=== PATIENT | male | born 1975 | race Hispanic/Latino ===

== ENCOUNTER 2025-07-19 04:27 | Emergency (ER) | payer OTHER ==
[~2025-07-19] VITALS: Ht 175.3 cm; Wt 90.7 kg
--- NOTE | 2025-07-19 04:33 | NUR ---
UA CUP PROVIDED
--- NOTE | 2025-07-19 04:42 | EKG ---
[facility] Test Date: 2025-07-19 Test Time: 04:34:07 Pat Name: PARESH MANCIA Department: [facility] Patient ID: [facility] [id number] Room: Gender: Medical Practice Manager: [id number] : 1975 Requested By: MAXIMO FAULKNER Order Number: [id number] Reading MD: Jimmy Nath Measurements Intervals [place] Rate: 117 P: 43 TN: 149 QRS: 7 QRSD: 82 T: 12 QT: 327 QTc: 455 Interpretive Statements Sinus tachycardia Borderline ST depression, lateral leads No previous ECG available for comparison Electronically Signed On 07-19-2025 12:14:46 [employer] SOFTWARE DEVELOPER by Jimmy Nath Please click the below link to view image of tracing.
[2025-07-19 04:47] LABS: APPEARANCE,URINE CLEAR (CLEAR); GLUCOSE, URINE (UA) NEGATIVE (NEGATIVE); LEUKOCYTE ESTERASE ,URINE NEGATIVE Leu/uL (NEGATIVE); NITRATE,URINE NEGATIVE (NEGATIVE); OCCULT BLOOD,URINE +- (TRACE) (NEGATIVE)
[2025-07-19 04:57] LABS: ADD UA MICROSCOPIC YES
[2025-07-19 05:03] LABS: IMMATURE GRANULOCYTE ABSOLUTE 0.01 K/uL (0-1); NUCLEATED RED BLOOD CELLS 0.0 % (0.0-0.19); PLATELET COUNT (AUTO) 142 K/uL (130-400); RED BLOOD CELL COUNT(AUTO) 5.06 MIL/uL (4.50-6.20); RED CELL DISTRIBUTION WIDTH 11.8 % (11.0-15.5); WHITE BLOOD COUNT (AUTO) 6.0 K/uL (4.8-10.8)
[2025-07-19] MEDS: NITROGLYCERIN 1GM OINT 1 INCH/1GM TD ONE (05:05)
[2025-07-19] MEDS: OCTYL 2-CYANOACRYLATE 1 EACH TP SCH (05:11)
[2025-07-19 05:12] LABS: CREATININE 0.7 mg/dL (0.5-1.3); GLOMERULAR FILTR. RATE CALC 114.0 mL/min (>90); GLUCOSE,RANDOM 149.0 mg/dL (70-105); SODIUM SERUM 133.0 mmol/L (136-145); UREA NITROGEN, BLOOD 7.0 mg/dL (7-18)
[2025-07-19 05:17] LABS: CREATINE KINASE, TOTAL 393.0 U/L (21-232)
--- NOTE | 2025-07-19 05:47 | ERN ---
ED Note History of Present Illness Stated Complaint: HTN, ABRASION/LACERATION TO NARE Chief Complaint: Multiple Complaints Time Seen by MD: 04:34 Dictation: This is a 50-year-old male who presented to the emergency rooms with complaints of abrasion and bleeding from the right nares. It was outside on the nose and patient stated that he picked the skin. The bleeding has gone on for more than 2 hours and hence he came in for evaluation. He was noted to be very hypertensive in triage. He denied any headache chest pain blurred vision diplopia slurred speech motor weakness or seizure activity. He has not taken his blood pressure medications today due to insurance issues. Temperature 97.3 pulse 120 respirations 20 blood pressure 234/144 with a pulse oximetry of 98% on room air Allergies: Coded Allergies: No Known Allergies (Unverified Allergy, Unknown, 07/19/25) Past Medical History Past Medical History: Hypertension Surgical History: None Family History: Negative Social History: Negative RN Note Reviewed/Agreed w/PFSH: Yes Review of System Dictation Constitutional: Negative for fever,chills, and weight loss Eyes: Negative for injury, pain,redness, and discharge ENT: Negative for injury,pain or swelling bleeding from skin of the nose Cardiovascular: Negative for chest pain, palpitations, and edema Respiratory: Negative for shortness of breath, cough, and wheezing, Abdomen/GI: Negative for abdominal pain, nausea, vomiting, diarrhea, and constipation Back: Negative for injury and pain : Negative for injury, bleeding and discharge MS/Extremity: Negative for injury and deformity Skin: Negative for rash, and discoloration Neuro: Negative for headache, weakness, numbness, tingling, and seizure Psych: Negative for suicide ideation, homicidal ideation, and hallucinations Initial Vital Sign VS Vital Signs Date Time Temp Pulse Resp B/P (MAP) Pulse Ox O2 Delivery O2 Flow Rate FiO2 07/19/25 04:29 97.3 120 20 234/144 98 Room Air 07/19/25 04:49 0 21 Physical Exam Dictation General: awake, alert, NAD Head/Face: Normocephalic, atraumatic Eyes: PERRL, EOMI, vision at baseline ENT: oral cavity clear, TMs clear, no signs of infection Neck: Trachea midline, supple, no nuchal rigidity Cardiovascular: RRR, normal S1/S2, No MRGs, no JVD Respiratory: CTAB, no respiratory distress, No rales or wheezes Abdomen: Soft, non-tender, non-distended, normal bowel sounds, no guarding or rebound. Skin: Warm, dry, normal turgor, no rash MS/Extremity: Pulses equal, no cyanosis, neurovascular intact, FROM Neuro: COAx4, GCS 15, strength 5/5, CN 2-12 intact, normal cerebellar exam, normal gait, Psych: Normal behavior, mood, and affect normal Extremities-trace edema without any palpable cords, Homans sign is negative Results (Laboratory/Radiology) Laboratory/Radiology Laboratory Tests Test 07/19/25 04:40 07/19/25 04:52 Urine Color COLORLESS (YELLOW) Urine Appearance CLEAR (CLEAR) Urine pH 6.5 (5.0-8.0) Urine Specific [place] 1.005 (1.001-1.031) Urine Protein 50 mg/dL (NEGATIVE) H Urine Glucose (UA) NEGATIVE mg/dL (NEGATIVE) Urine Ketones NEGATIVE mg/dL (NEGATIVE) Urine Occult Blood +- (TRACE) (NEGATIVE) H Urine Nitrate NEGATIVE (NEGATIVE) Urine Bilirubin NEGATIVE mg/dL (NEGATIVE) Urine Urobilinogen 0.2 mg/dL (0.2-1.0) Urine Leukocyte Esterase NEGATIVE [place]/uL Urine RBC 0-1 /HPF (0-1) Urine WBC /HPF (0-1) Urine Bacteria Rare /HPF (None Seen) White Blood Count 6.0 K/uL (4.8-10.8) Red Blood Count 5.06 MIL/uL (4.50-6.20) Hemoglobin 16.4 g/dL (14.0-18.0) Hematocrit 45.7 % (42-54) Mean Corpuscular Volume 90.3 fL (79-99) Mean Corpuscular Hemoglobin 32.4 pg (27.0-33.0) Mean Corpuscular Hemoglobin Concent 35.9 g/dL (32.0-36.0) Red Cell Distribution Width 11.8 % (11.0-15.5) Platelet Count 142 K/uL (130-400) Mean Platelet Volume 9.5 fL (7.5-10.5) Immature Granulocyte % (Auto) 0.2 % (0-1) Neutrophils (%) (Auto) 60.6 % (40.0-77.0) Lymphocytes (%) (Auto) 29.6 % (21.0-51.0) Monocytes (%) (Auto) 7.5 % (3.0-13.0) Eosinophils (%) (Auto) 1.3 % (0.0-8.0) Basophils (%) (Auto) 0.8 % (0.0-5.0) Neutrophils # (Auto) 3.6 K/uL (1.8-7.7) Lymphocytes # (Auto) 1.8 K/uL (1.0-4.8) Monocytes # (Auto) 0.5 K/uL (0.1-1.0) Eosinophils # (Auto) 0.08 K/uL (0.00-0.70) Basophils # (Auto) 0.05 K/uL (0.00-0.20) Absolute Immature Granulocyte (auto 0.01 K/uL (0-1) Nucleated Red Blood Cells 0.0 % (0.0-0.19) Sodium Level 133 mmol/L (136-145) L Potassium Level 3.2 mmol/L (3.5-5.1) L Chloride Level 94 mmol/L (101-111) L Carbon Dioxide Level 26 mmol/L (21-32) Blood Urea Nitrogen 7 mg/dL (7-18) Creatinine 0.7 mg/dL (0.5-1.3) Glomerular Filtration Rate Calc 114 mL/min (>90) Random Glucose 149 mg/dL (70-105) H Total Calcium 9.0 mg/dL (8.5-10.1) Total Creatine Kinase 393 U/L (21-232) H Troponin I High Sensitivity 7 ng/L (4-75) Labs Reviewed?: Yes EKG Comment: 12 lead EKG done on 07/19/2025 at 4:34 a.m. showed a heart rate of 117, VA interval 149, QRS 82, QT/QTC 327/455 Impression sinus tachycardia nonspecific ST-T changes noted EKG rhythm strip shows sinus tachycardia with a some ST-T depressions that are very nonspecific. Interpreted by ER MD Dr. Faulkner ED Course ED Course Orders Procedure Category Date Status Time Vital Signs Per CPOE 07/19/25 Transmitted Routine 04:38 Chest 1vw RAD 07/19/25 Resulted 04:38 12 Lead Ekg Tracing- EKG 07/19/25 Complete Technical 04:38 Oxygen By Nc/Pulse Ox CPOE 07/19/25 Transmitted 04:38 Maintain Iv CPOE 07/19/25 Transmitted 04:38 Iv Insertion CPOE 07/19/25 Transmitted 04:38 Cardiac Monitoring CPOE 07/19/25 Transmitted 04:38 Pulse Oximetry With CPOE 07/19/25 Transmitted Vs And Prn 04:38 Cbc With Differential LAB 07/19/25 Complete 04:38 Activity: Br W/Brp CPOE 07/19/25 Transmitted With Assist 04:38 Creatine Kinase, Total LAB 07/19/25 Complete 04:38 Troponin I High LAB 07/19/25 Complete Sensitivity 04:38 Urinalysis Profile LAB 07/19/25 Complete 04:38 Basic Metabolic Panel LAB 07/19/25 Complete 04:38 Dermabond (Dermabond) PHA 07/19/25 In Process 05:00 Nitroglycerin 1gm PHA 07/19/25 Complete Oint (Nitroglycerin 1g 05:00 Alprazolam 0.5mg PHA 07/19/25 Complete (Xanax 0.5mg) 05:00 Potassium Bicarb/Cit PHA 07/19/25 Complete Ac 25meq (K-Lyte Ta 06:00 Hydralazine 20mg Inj PHA 07/19/25 Complete (Apresoline 20mg In 06:30 Current Medications Medications (Trade) Dose Ordered Sig/Abby Route PRN Reason Start Time Stop Time Status Last Admin Dose Admin Alprazolam (XANax 0.5MG) 0.5 mg ONCE ONCE PO 07/19/25 05:00 07/19/25 05:01 DC 07/19/25 05:05 Hydralazine HCl (APRESOLine 20MG INJ) 20 mg ONCE ONCE IV 07/19/25 06:30 07/19/25 06:31 DC 07/19/25 06:21 Nitroglycerin (Nitroglycerin 1gm Oint) 0.5 inch ONCE ONCE TD 07/19/25 05:00 07/19/25 05:01 DC 07/19/25 05:05 Octyl Cyanoacrylate (Dermabond) 1 each ONCE TP 07/19/25 05:00 08/18/25 04:59 07/19/25 05:11 Potassium Bicarbonate (K-Lyte Tablet Eff 25 Meq Tablet.eff) 25 meq ONCE ONCE PO 07/19/25 06:00 07/19/25 06:01 DC 07/19/25 06:21 Vital Signs Date Time Temp Pulse Resp B/P (MAP) Pulse Ox O2 Delivery O2 Flow Rate FiO2 07/19/25 06:21 195/115 07/19/25 06:14 110 18 196/108 98 Room Air* 0 21 07/19/25 04:49 97.5 115 18 230/110 98 Room Air* 0 21 07/19/25 04:29 97.3 120 20 234/144 98 Room Air Medical Decision Making MDM Differential diagnosis: Hypertensive emergency, hypertensive urgency, accelerated hypertension, uncontrolled hypertension. This is a 50-year-old male who presented to the emergency rooms with complaints of abrasion and bleeding from the right nares. It was outside on the nose and patient stated that he picked the skin. The bleeding has gone on for more than 2 hours and hence he came in for evaluation. He was noted to be very hypertensive in triage. He denied any headache chest pain blurred vision dip lopia slurred speech motor weakness or seizure activity. He has not taken his blood pressure medications today due to insurance issues. Temperature 97.3 pulse 120 respirations 20 blood pressure 234/144 with a pulse oximetry of 98% on room air 5:40 a.m. labs reviewed CBC is normal BNP 7 is significant for a sodium of 133 chloride 94 potassium of 3.2 total CK 393. Urinalysis is unremarkable and troponins are negative Dermabond placed on the nasal skin lesion after which the bleeding stopped immediately. Blood pressure is gradually improving. We will give an additional dose of hydralazine and if blood pressures are in the 180s, patient could be discharged with oral medications. Counseled him extensively on lifestyle modifications dietary restrictions in t erms of salt and diligent compliance with his medication Rationale: Tests considered and ordered secondary to shared decision making include: Previous outside records reviewed: Old ER visits. Risk of complication and/or morbidity or mortality of patient management: None Medications-Per medication reconciliation Need for hospitalization: Patient does not meet criteria for hospitalization. Need for emergency major/minor surgery: No There are no social concerns with this patient. Prescription drug management Prescriptions will include symptomatic care Patient's prior external medical records from other ER visits were reviewed by me as indicated. Prior testing and results from previous visits were reviewed. Prior tests were taken into account with medical decision making and resource utilization, independent historian/historians were used to obtain complete medical history. I independently interpreted the test that were performed, results were reviewed by me and considered findings on radiology if ordered. Medical management and examination interpretation discussions were had by me with other qualified healthcare professionals as indicated for the patient's care. Problem List Problem List: (1) Hypertensive urgency (2) Hemorrhage of skin lesion DX & DISP Disposition: Discharge Departure Impression: Primary Impression: Hemorrhage of skin lesion Additional Impression: Hypertensive urgency Condition: Stable Scripts Amlodipine Besylate (Amlodipine Besylate) 10 Mg Tablet 1 TAB PO DAILY for 30 Days, #30 TAB 0 Refills Prov: MAXIMO FAULKNER MD 07/19/25 Additional Instructions: Patient and the caregiver have been informed of all the diagnostic tests and the imaging conducted during the today's visit to the emergency room and has verbalized understanding of the results I have personally reviewed and interpreted all diagnostic exams performed here in the ER today as well as the vital signs documented by the nursing staff. The patient is now being discharged to home and should follow up with the primary care physician or the specialist as directed by the ER staff. Extensive counseling on optimal blood pressure control and being compliant with medications and negative consequences of noncompliance including hypertensive emergencies leading to intracranial hemorrhage, stroke, acute NV, dissection of the aorta, renal failure and Referrals: DEIDRE MACIEL MD (PCP) MAXIMO FAULKNER MD Jul 19, 2025 05:47
--- NOTE | 2025-07-19 06:36 | HMCIMG ---
EXAM: CR Chest, single view. CLINICAL HISTORY: Chest pain. COMPARISON: None FINDINGS: The lungs show no infiltrate or other acute findings. No pleural effusion or pneumothorax. The cardiomediastinal silhouette is within normal limits. No acute osseous abnormality. IMPRESSION: No acute cardiopulmonary pathology is evident. /[place]
[2025-07-19] MEDS ORDERED: AMLO-258 PO (06:42)
[2025-07-19 07:06] VITALS: BP 172/89; PULSE 100; RESP 18; TEMP 98.2; O2SAT 98
== END 2025-07-19 07:08 | disposition home or self-care (01) ==
LOC: EDH 04:27
DX: L98.9 Disorder of the skin and subcutaneous tissue, unspecified (principal); I10 Essential (primary) hypertension; I16.0 Hypertensive urgency
CPT/HCPCS: 99285; 96374; 71045; 82550; 84484; 80048; 85025; 81001; 36415; 93005; J0360